=== PATIENT | female | born 1995 | race Hispanic/Latino ===

== ENCOUNTER 2021-10-02 21:44 | Emergency (ER) | payer OTHER ==
[~2021-10-02] VITALS: Ht 149.9 cm; Wt 54.4 kg
[2021-10-02 21:45] VITALS: BP 131/86
[2021-10-02] MEDS ORDERED: DOXY-350 PO (21:51)
[2021-10-03] MEDS ORDERED: PRED20TA PO (01:00)
[2021-10-03] MEDS ORDERED: IBUPROFEN 800 MG TAB PO ONE (01:00)
[2021-10-03] MEDS ORDERED: ACETAMINOPHEN TAB 650MG DOSE (2X325MG) PO ONE (01:00)
== END 2021-10-03 01:26 | disposition home or self-care (01) ==
LOC: M ED 21:44
DX: L70.0 Acne vulgaris (principal); R07.0 Pain in throat; Z79.52 Long term (current) use of systemic steroids

== ENCOUNTER 2022-06-19 10:54 | Emergency (ER) | payer OTHER ==
[~2022-06-19] VITALS: Ht 152.4 cm; Wt 61.8 kg
[~2022-06-19 10:54] MED LIST: DOXY-350 PO; PRED20TA PO
[2022-06-19 10:55] VITALS: BP 122/83
[2022-06-19] MEDS ORDERED: NS 1,000 ML IV ONE (11:40)
[2022-06-19 12:36] LABS: BASO % 0.5 % (0.0-1.0); EOS % 0.1 % (0.0-3.0); HEMATOCRIT 42.8 % (36.0-47.0); HEMOGLOBIN 14.5 g/dl (12.0-15.5); LYMPH # 2.2 10^3/uL (1.5-5.0); LYMPH % 29.4 % (24.0-44.0); MEAN CORPUSCULAR HEMOGLOBIN 30.7 pg (27.0-33.0); MEAN CORPUSCULAR HGB CONC 33.9 g/dl (32.0-36.5); MEAN CORPUSCULAR VOLUME 90.7 fl (80.0-96.0); MONO # 0.6 10^3/uL (0.0-0.8); MONO % 7.7 % (2.0-8.0); NEUTROPHILS # 4.7 10^3/uL (1.5-8.5); NEUTROPHILS % 61.9 % (36.0-66.0); PLATELET COUNT, AUTOMATED 274 10^3/uL (150-450); RED BLOOD COUNT 4.72 10^6/uL (4.00-5.40); WHITE BLOOD COUNT 7.5 10^3/uL (4.0-10.0)
[2022-06-19 13:27] LABS: ALT/SGPT 19 U/L (12-78); BILIRUBIN,DIRECT < 0.1 MG/DL (0.0-0.2); BILIRUBIN,TOTAL 0.5 MG/DL (0.2-1.0); BLOOD UREA NITROGEN 13 MG/DL (7-18); CALCIUM LEVEL 9.7 MG/DL (8.5-10.1); CARBON DIOXIDE LEVEL 25 MEQ/L (21-32); CHLORIDE LEVEL 107 MEQ/L (98-107); CREATININE FOR GFR 0.85 MG/DL (0.55-1.30); GLOMERULAR FILTRATION RATE > 60.0 (>60); GLUCOSE, FASTING 95 MG/DL (70-100); POTASSIUM SERUM 4.3 MEQ/L (3.5-5.1); SODIUM LEVEL 139 MEQ/L (136-145); THYROXINE (T4) 6.6 UG/DL (4.5-12.0); TOTAL PROTEIN 7.7 GM/DL (6.4-8.2)
[2022-06-19 14:18] LABS: CK-MB VALUE MASS 1.2 NG/ML (<3.6); MB/CK RELATIVE INDEX 0.68 (< OR =4)
[2022-06-19 15:20] LABS: CK-MB VALUE MASS 1.7 NG/ML (<3.6); MB/CK RELATIVE INDEX 0.94 (< OR =4)
[2022-06-19 17:42] LABS: CK-MB VALUE MASS 1.8 NG/ML (<3.6); MB/CK RELATIVE INDEX 0.96 (< OR =4)
== END 2022-06-19 18:25 | disposition home or self-care (01) ==
LOC: M ED 10:54
DX: M54.50 Low back pain, unspecified (principal); R06.02 Shortness of breath; F10.10 Alcohol abuse, uncomplicated; Z97.5 Presence of (intrauterine) contraceptive device; Z79.899 Other long term (current) drug therapy

== ENCOUNTER → 2022-09-12 | Outpatient (CLI) | payer OTHER ==
[~2022-09-12] MED LIST changes: +ISOVUE-300 61% 50ML VIAL As Ordered ONE; +LIDOCAINE 1% MDV 20ML VIAL As Ordered ONE; +TRIAMCINOLONE ACETONIDE SUSP 40 MG/ML VIAL (J3301) As Ordered ONE
== END ==
LOC: M RADPRO 14:07 → M RAD 14:07
PROVIDERS: ATTEND Orthopaedic Surgery
DX: M25.551 Pain in right hip (principal)
CPT/HCPCS: 20610; 76000; J3301; Q9967

== ENCOUNTER 2024-01-07 16:48 | Emergency (ER) | payer OTHER ==
[~2024-01-07] VITALS: Ht 149.9 cm; Wt 64.3 kg
[~2024-01-07 16:48] MED LIST changes: -DOXY-350 PO; +DOXY-444 PO; -ISOVUE-300 61% 50ML VIAL As Ordered ONE; -LIDOCAINE 1% MDV 20ML VIAL As Ordered ONE; -TRIAMCINOLONE ACETONIDE SUSP 40 MG/ML VIAL (J3301) As Ordered ONE
[2024-01-07 17:40] VITALS: BP 138/98; TEMP 97.1; O2SAT 99
== END 2024-01-07 21:30 | disposition left against medical advice (07) ==
LOC: M ED 16:48
DX: Z53.21 Procedure and treatment not carried out due to patient leaving prior to being seen by health care provider (principal)